=== PATIENT | female | born 1960 | race Two or more races ===

== ENCOUNTER 2017-04-20 15:43 | Outpatient (CLI) | payer OTHER ==
[~2017-04-20 15:43] MED LIST: ALLI60 MG PO; AVAPRO75 MG PO; CYTOMEL25 MCG PO; HYDROCHLOROTHIA25 MG; ULTRACET PO
== END 2017-04-21 09:51 | disposition home or self-care (01) ==
LOC: SONOGRAMA 15:43
DX: M05.79 Rheumatoid arthritis with rheumatoid factor of multiple sites without organ or systems involvement (principal)

== ENCOUNTER 2017-10-18 12:55 | Inpatient (IN) | payer OTHER ==
[~2017-10-18] VITALS: Ht 177.8 cm; Wt 110.7 kg
[2017-10-18] MEDS ORDERED: CYTOMEL25 MCG PO (13:19)
[2017-10-27] MEDS ORDERED: XARELTO10 MG PO (16:21)
[2017-10-27] MEDS ORDERED: PERCOCET 5-3251 EACH PO (16:21)
[2017-10-27] MEDS ORDERED: CIPRO500 MG PO (16:21)
== END 2017-10-27 18:32 | DRG 470 ==
LOC: O/R 10-25 06:00 → SURG 10-25 06:00 → SURH 10-25 09:45 → SURG 10-25 12:39 → SURH 10-25 12:54 → SURG 10-27 18:32
PROVIDERS: Orthopaedic Surgery
PROC: 0MNN0ZZ Release Right Knee Bursa and Ligament, Open Approach (ICD-10-PCS; 2017-10-25)
PROC: 0SRC0J9 Replacement of Right Knee Joint with Synthetic Substitute, Cemented, Open Approach (ICD-10-PCS; principal; 2017-10-25 09:45)
DX: M17.11 Unilateral primary osteoarthritis, right knee (principal); D62 Acute posthemorrhagic anemia; I10 Essential (primary) hypertension; E66.8 Other obesity; M81.0 Age-related osteoporosis without current pathological fracture; E03.8 Other specified hypothyroidism

== ENCOUNTER 2020-07-03 07:32 | Outpatient (CLI) | payer OTHER ==
[~2020-07-03 07:32] MED LIST changes: +CIPRO500 MG PO; +PERCOCET 5-3251 EACH PO; +XARELTO10 MG PO
== END 2020-07-03 07:43 | disposition home or self-care (01) ==
LOC: TOM 07:32
PROVIDERS: ATTEND Internal Medicine Cardiovascular Disease
DX: R59.1 Generalized enlarged lymph nodes (principal); R10.84 Generalized abdominal pain; R63.0 Anorexia; Z12.11 Encounter for screening for malignant neoplasm of colon; Z13.0 Encounter for screening for diseases of the blood and blood-forming organs and certain disorders involving the immune mechanism

== ENCOUNTER → 2020-08-05 07:31 | Outpatient (CLI) | payer OTHER | END | disposition home or self-care (01) | LOC: LAB 07:31 | PROVIDERS: ATTEND Internal Medicine Cardiovascular Disease | DX: Z13.0 Encounter for screening for diseases of the blood and blood-forming organs and certain disorders involving the immune mechanism (principal); Z12.11 Encounter for screening for malignant neoplasm of colon; R63.0 Anorexia ==

== ENCOUNTER → 2020-08-06 08:29 | Outpatient (CLI) | payer OTHER | END | disposition home or self-care (01) | LOC: LAB 08:29 | PROVIDERS: ATTEND Internal Medicine Cardiovascular Disease | DX: Z13.0 Encounter for screening for diseases of the blood and blood-forming organs and certain disorders involving the immune mechanism (principal); Z12.11 Encounter for screening for malignant neoplasm of colon; R63.0 Anorexia ==

== ENCOUNTER → 2020-11-13 08:00 | Outpatient (CLI) | payer OTHER ==
[~2020-11-13] VITALS: Ht 177.8 cm; Wt 108.9 kg
[~2020-11-13 08:00] MED LIST changes: +AVAPRO300 MG PO; +CYANOCOBAL1000 MCG/1 IM; +FAMOTIDINE20 MG PO; +FOLBEE PLUS CZ1 EACH PO; +HYDROCHLOROTHIA25 MG PO; +IRON325 MG PO; +LASIX20 MG PO; +THIAMINE HCL100 MG PO
== END | disposition home or self-care (01) ==
LOC: LAB 08:00 → EDSTATUS 11-18 08:15 → SURH 11-18 08:15
PROVIDERS: ATTEND Orthopaedic Surgery
DX: M17.12 Unilateral primary osteoarthritis, left knee (principal); Z20.828 Contact with and (suspected) exposure to other viral communicable diseases; Z20.818 Contact with and (suspected) exposure to other bacterial communicable diseases

== ENCOUNTER 2020-11-14 15:52 | Inpatient (IN) | payer OTHER ==
[~2020-11-14] VITALS: Ht 177.8 cm; Wt 66.7 kg
[~2020-11-14 15:52] MED LIST changes: -CYANOCOBAL1000 MCG/1 IM; -FAMOTIDINE20 MG PO; -FOLBEE PLUS CZ1 EACH PO; -IRON325 MG PO; -LASIX20 MG PO; -THIAMINE HCL100 MG PO
[2020-11-18] MEDS ORDERED: IRON325 MG PO (08:18)
[2020-11-18] MEDS ORDERED: FOLBEE PLUS CZ1 EACH PO (08:19)
[2020-11-18] MEDS ORDERED: LASIX20 MG PO (08:21)
[2020-11-18] MEDS ORDERED: FAMOTIDINE20 MG PO (08:22)
[2020-11-18] MEDS ORDERED: THIAMINE HCL100 MG PO (08:24)
[2020-11-18] MEDS ORDERED: AVAPRO300 MG PO (08:25)
[2020-11-18] MEDS ORDERED: CYANOCOBAL1000 MCG/1 IM (08:28)
== END 2020-11-18 11:00 | disposition home or self-care (01) | DRG 812 ==
LOC: MEDJ 15:52
PROVIDERS: ADMIT Internal Medicine Cardiovascular Disease; ATTEND Internal Medicine Cardiovascular Disease
PROC: 30233N1 Transfusion of Nonautologous Red Blood Cells into Peripheral Vein, Percutaneous Approach (ICD-10-PCS; principal; 2020-11-16)
DX: D51.8 Other vitamin B12 deficiency anemias (principal); I10 Essential (primary) hypertension; M17.11 Unilateral primary osteoarthritis, right knee
CPT/HCPCS: 240; 74185

== ENCOUNTER 2020-12-03 13:52 | Outpatient (CLI) | payer OTHER ==
[~2020-12-03 13:52] MED LIST changes: +CYANOCOBAL1000 MCG/1 IM; +FAMOTIDINE20 MG PO; +FOLBEE PLUS CZ1 EACH PO; +IRON325 MG PO; +LASIX20 MG PO; +THIAMINE HCL100 MG PO
== END 2020-12-03 14:02 | disposition home or self-care (01) ==
LOC: LAB 13:52
PROVIDERS: ATTEND Internal Medicine Cardiovascular Disease
DX: I10 Essential (primary) hypertension (principal); E11.00 Type 2 diabetes mellitus with hyperosmolarity without nonketotic hyperglycemic-hyperosmolar coma (NKHHC); E78.00 Pure hypercholesterolemia, unspecified; E03.8 Other specified hypothyroidism

== ENCOUNTER 2021-04-08 10:05 | Outpatient (CLI) | payer OTHER | END 2021-04-08 10:06 | disposition home or self-care (01) | LOC: NUCLEAR 10:05 | PROVIDERS: ATTEND Internal Medicine Cardiovascular Disease | DX: I87.2 Venous insufficiency (chronic) (peripheral) (principal) ==

== ENCOUNTER 2021-04-22 09:34 | Inpatient (IN) | payer OTHER ==
[~2021-04-22] VITALS: Ht 177.8 cm; Wt 111.1 kg
[2021-04-30] MEDS ORDERED: PERCOCET 5-3251 EACH PO (15:31)
[2021-04-30] MEDS ORDERED: ELIQUIS2.5 MG PO (15:31)
[2021-04-30] MEDS ORDERED: CIPROFLOXACIN500 MG PO (15:31)
== END 2021-04-30 17:05 | DRG 470 ==
LOC: O/R 04-28 05:43 → SURH 04-28 09:45
PROVIDERS: ADMIT Orthopaedic Surgery; ATTEND Orthopaedic Surgery
PROC: 0SRD0J9 Replacement of Left Knee Joint with Synthetic Substitute, Cemented, Open Approach (ICD-10-PCS; principal; 2021-04-28 10:30)
DX: M17.12 Unilateral primary osteoarthritis, left knee (principal); D62 Acute posthemorrhagic anemia; M22.12 Recurrent subluxation of patella, left knee; M81.0 Age-related osteoporosis without current pathological fracture; Z20.822 Contact with and (suspected) exposure to COVID-19; I10 Essential (primary) hypertension; E03.8 Other specified hypothyroidism; E66.8 Other obesity; E06.3 Autoimmune thyroiditis

== ENCOUNTER 2021-06-10 09:02 | Emergency (ER) | payer OTHER ==
[~2021-06-10] VITALS: Ht 177.8 cm; Wt 102.1 kg
[~2021-06-10 09:02] MED LIST changes: +CIPROFLOXACIN500 MG PO; +ELIQUIS2.5 MG PO
[2021-06-10] MEDS ORDERED: ULTRACET PO (09:12)
[2021-06-10] MEDS ORDERED: MEDROLPACK PO (12:17)
[2021-06-10] MEDS ORDERED: CETIRIZINE HCL10 MG PO (12:17)
== END 2021-06-10 12:37 ==
LOC: ER 09:02
DX: T78.49XA Other allergy, initial encounter (principal); L23.5 Allergic contact dermatitis due to other chemical products; X58.XXXA Exposure to other specified factors, initial encounter; Y92.9 Unspecified place or not applicable; H05.229 Edema of unspecified orbit

== ENCOUNTER → 2025-04-09 | Emergency (ER) | payer OTHER ==
[~2025-04-09] VITALS: Ht 177.8 cm; Wt 108.9 kg
[~2025-04-09] MED LIST changes: +ACETAMINOPHEN 500 MG GEL..CAP PO ONE; +CETIRIZINE HCL10 MG PO; +DEXAMETHASONE SODIUM PHOSPHATE 4 MG/ML VIAL IM STA; +DEXAMETHASONE SODIUM PHOSPHATE 4 MG/ML VIAL ONE; +KETO10TA2 PO; +LIDOCAINE HCL 1% 10ML VIAL ONE; +MEDROLPACK PO; +TRAMADOL HCL 50 MG TABLET PO STA
== END | disposition home or self-care (01) ==
LOC: ER 14:22
DX: S62.101A Fracture of unspecified carpal bone, right wrist, initial encounter for closed fracture (principal); W19.XXXA Unspecified fall, initial encounter; Y93.89 Activity, other specified; Y92.098 Other place in other non-institutional residence as the place of occurrence of the external cause; Y99.8 Other external cause status; Z88.0 Allergy status to penicillin; I10 Essential (primary) hypertension; M25.531 Pain in right wrist; G89.11 Acute pain due to trauma; M25.552 Pain in left hip
CPT/HCPCS: 29105; 70450; 72100; 72125; 72170; 73090; 73110; 73130; 73502; 96372; 99284; J1100